=== PATIENT | female | born 1980 | race African-American/Black ===

== ENCOUNTER 2017-02-10 18:38 | Emergency (ER) | payer OTHER ==
[~2017-02-10] VITALS: Ht 165.1 cm; Wt 62.2 kg
[~2017-02-10 18:38] MED LIST: NAPROSYN500 MG PO; PREDNISONE20 MG PO
[2017-02-10 20:44] VITALS: BP 121/79
== END 2017-02-10 20:47 | disposition home or self-care (01) ==
LOC: EME 18:38
DX: S63.617A Unspecified sprain of left little finger, initial encounter (principal); W18.30XA Fall on same level, unspecified, initial encounter; Y93.44 Activity, trampolining; F17.200 Nicotine dependence, unspecified, uncomplicated
CPT/HCPCS: 73140; 99281; 99284

== ENCOUNTER 2017-09-04 22:36 | Emergency (ER) | payer OTHER ==
[~2017-09-04] VITALS: Ht 165.1 cm; Wt 67.3 kg
[2017-09-05] MEDS ORDERED: NAPROSYN375 MG PO (01:49)
[2017-09-05] MEDS ORDERED: CLEOCIN150 MG PO (01:49)
[2017-09-05 02:31] VITALS: BP 156/97
== END 2017-09-05 02:32 | disposition home or self-care (01) ==
LOC: EME 22:36
DX: M54.2 Cervicalgia (principal); R68.84 Jaw pain; K02.9 Dental caries, unspecified; K03.81 Cracked tooth; Z88.0 Allergy status to penicillin; F17.200 Nicotine dependence, unspecified, uncomplicated
CPT/HCPCS: 99281; 99284

== ENCOUNTER 2018-02-01 08:23 | Emergency (ER) | payer OTHER ==
[~2018-02-01] VITALS: Ht 165.1 cm; Wt 61.5 kg
[~2018-02-01 08:23] MED LIST changes: +CLEOCIN150 MG PO; +NAPROSYN375 MG PO
[2018-02-01] MEDS ORDERED: ZOFRAN4 MG PO (09:29)
[2018-02-01] MEDS ORDERED: CLEOCIN300 MG PO (09:29)
[2018-02-01] MEDS ORDERED: PERCOCET 5/31 TABLET PO (09:29)
[2018-02-01] MEDS ORDERED: NAPROSYN500 MG PO (09:29)
[2018-02-01 10:45] VITALS: BP 159/105
== END 2018-02-01 10:47 | disposition home or self-care (01) ==
LOC: EME 08:23
DX: K02.9 Dental caries, unspecified (principal); F17.200 Nicotine dependence, unspecified, uncomplicated; G89.29 Other chronic pain; Z88.0 Allergy status to penicillin
CPT/HCPCS: 99281; 99284